=== PATIENT | female | born 1980 | race Caucasian/White ===

== ENCOUNTER 2018-08-26 08:50 | Emergency (ER) | payer SELFPAY ==
[2018-08-26] MEDS ORDERED: CLEOCIN 600 MG/50 mL 600 MG/50 ML BAG IV ONE (09:57)
[2018-08-26] MEDS ORDERED: NACL 0.9% 1000 ML 1,000 ML IV ONE (09:57)
[2018-08-26] MEDS ORDERED: TORADOL IV ONE (09:58)
[2018-08-26 13:08] LABS: Bilirubin,Urine NEG (Negative); Blood,Urine SM (Negative); Color,Urine Straw (Yellow); Mucus,Urine FEW /HPF; Urobilinogen,Urine < 2.0 mg/dL (<2.0)
[2018-08-26 13:09] LABS: Protein,Urine >500 mg/dL (Negative)
[2018-08-26 13:29] LABS: HCG Qualitative,Urine Negative (Negative)
[2018-08-26] MEDS ORDERED: DIFLUCAN PO ONE (13:42)
--- NOTE | 2018-08-26 13:42 | Emergency Department Report ---
ED Extremity Problem HPI - General Chief complaint: Extremity Problem,Nontraumatic Stated complaint: (L) TOE SWOLLEN/PAIN Time Seen by Provider: 08/26/18 09:54 Source: patient Mode of arrival: Ambulatory Limitations: No Limitations - History of Present Illness Initial comments: Patient is a 38-year-old female with past history of diabetes prese nting with right great toe pain. Patient states that she was clipping her nails several days ago and thinks she may have clipped too far down. Patient has some swelling around the nail with redness. Patient states as a throbbing aching sensation to 6 out of 10 in severity. Patient denies any fevers chills nausea vomiting or diarrhea. She has had some increased urination and some mild weakness. Patient also states that she has some mild vaginal itching and dysuria. Patient's denies suprapubic pain or back pain at this time. Severity scale (0 -10): 6 - Related Data Home Medications Medication Instructions Recorded Confirmed Last Taken Ferrous Sulfate [Iron Supplement 10 gram PO BID 08/30/14 11/09/15 10/06/15 325 Mg tab] Insulin Glargine [Lantus VIAL] 17 units SQ QHS 08/30/14 11/09/15 10/06/15 Lisinopril [Zestril TAB] 5 mg PO QDAY 08/30/14 11/09/15 10/06/15 Insulin Lispro [HumaLOG VIAL] 5.8 units SQ AC 10/04/15 11/09/15 10/06/15 Previous Rx's Medication Instructions Recorded Last Taken Type Pantoprazole [Protonix TAB] 40 mg PO QDAY #30 tablet 11/12/15 Unknown Rx levoFLOXacin [Levaquin] 750 mg PO QDAY #12 tablet 11/12/15 Unknown Rx Clindamycin [Clindamycin CAP] 300 mg PO Q8H #21 cap 08/26/18 Unknown Rx Ketorolac [Toradol] 10 mg PO Q6H PRN #12 tablet 08/26/18 Unknown Rx traMADol [Ultram] 50 mg PO Q6HR PRN #12 tablet 08/26/18 Unknown Rx Allergies Allergy/AdvReac Type Severity Reaction Status Date / Time No Known Allergies Allergy Unverified 08/30/14 18:05 ED Review of Systems ROS: Stated complaint: (L) TOE SWOLLEN/PAIN Other details as noted in HPI Comment: All other systems reviewed and negative ED Past Medical Hx - Past Medical History Previous Medical History?: Yes Hx Hypertension: Yes Hx Congestive Heart Failure: No Hx Diabetes: Yes Hx GERD: Yes (Ulcer) Hx Renal Disease: No Hx Seizures: No Hx Asthma: No Hx COPD: No Additional medical history: Fibroids, high cholesterol - Surgical History Past Surgical History?: Yes Hx Appendectomy: Yes Additional Surgical History: tubal ligation, x 4. laser eye surgery 10/04/15 - Social History Smoking Status: Never Smoker Substance Use Type: None - Medications Home Medications: Home Medications Medication Instructions Recorded Confirmed Last Taken Type Ferrous Sulfate [Iron Supplement 10 gram PO BID 08/30/14 11/09/15 10/06/15 History 325 Mg tab] Insulin Glargine [Lantus VIAL] 17 units SQ QHS 08/30/14 11/09/15 10/06/15 History Lisinopril [Zestril TAB] 5 mg PO QDAY 08/30/14 11/09/15 10/06/15 History Insulin Lispro [HumaLOG VIAL] 5.8 units SQ AC 10/04/15 11/09/15 10/06/15 History Pantoprazole [Protonix TAB] 40 mg PO QDAY #30 tablet 11/12/15 Unknown Rx levoFLOXacin [Levaquin] 750 mg PO QDAY #12 tablet 11/12/15 Unknown Rx Clindamycin [Clindamycin CAP] 300 mg PO Q8H #21 cap 08/26/18 Unknown Rx Ketorolac [Toradol] 10 mg PO Q6H PRN #12 tablet 08/26/18 Unknown Rx traMADol [Ultram] 50 mg PO Q6HR PRN #12 tablet 08/26/18 Unknown Rx ED Physical Exam - General Limitations: No Limitations General appearance: alert, in no apparent distress - Head Head exam: Present: atraumatic, normocephalic - Eye Eye exam: Present: normal appearance - ENT ENT exam: Present: mucous membranes moist - Neck Neck exam: Present: normal inspection - Respiratory Respiratory exam: Present: normal lung sounds bilaterally. Absent: respiratory distress, wheezes, rales, rhonchi - Cardiovascular Cardiovascular Exam: Present: regular rate, normal rhythm. Absent: systolic murmur, diastolic murmur, rubs, gallop - GI/Abdominal GI/Abdominal exam: Present: soft, normal bowel sounds. Absent: distended, tenderness, guarding, rebound - Extremities Exam Extremities exam: Present: normal inspection, tenderness (pelvic right great toe. Patient has some mild erythema surrounding the nail.. There is no areas of fluctuance consistent with a paronychia.) - Back Exam Back exam: Present: normal inspection - Neurological Exam Neurological exam: Present: alert, oriented X3 - Psychiatric Psychiatric exam: Present: normal affect, normal mood - Skin Skin exam: Present: warm, dry, intact, normal color. Absent: rash ED Course Vital Signs 08/26/18 09:07 Temperature 97.8 F Pulse Rate 94 H Respiratory 16 Rate Blood Pressure 183/94 [Left] O2 Sat by Pulse 100 Oximetry ED Medical Decision Making - Lab Data Lab Results 08/26/18 08/26/18 Range/Units 09:07 11:31 POC Glucose 267 H (70-105) Urine Color Straw (Yellow) Urine Turbidity Clear (Clear) Urine pH 6.0 (5.0-7.0) Ur Specific [place] 1.010 (1.003-1.030) Urine Protein >500 (Negative) mg/dL Urine Glucose (UA) 150 (Negative) mg/dL Urine Ketones Neg (Negative) mg/dL Urine Blood Sm (Negative) Urine Nitrite Neg (Negative) Urine Bilirubin Neg (Negative) Urine Urobilinogen < 2.0 (<2.0) mg/dL Ur Leukocyte Esterase Neg (Negative) Urine WBC (Auto) 2.0 (0.0-6.0) /HPF Urine RBC (Auto) 4.0 (0.0-6.0) /HPF U Epithel Cells (Auto) < 1.0 (0-13.0) /HPF Urine Mucus Few /HPF Urine HCG, Qual Negative (Negative) - Medical Decision Making Patient given a liter of normal saline for hyperglycemia. Patient also started on IV clindamycin. Patient will continue clindamycin and some outpatient. Patient given Diflucan for presumed yeast infection. Patient's urinalysis was relatively within normal limits. Critical care attestation.: If time is entered above; I have spent that time in minutes in the direct care of this critically ill patient, excluding procedure time. ED Disposition Clinical Impression: Cellulitis of foot, Dysuria, Yeast infection Disposition: DC-01 TO HOME OR SELFCARE Is pt being admited?: No Does the pt Need Aspirin: No Condition: Stable Instructions: Cellulitis (ED), Diabetic Foot Care (ED) Referrals: ELAINE MCDANIELBROOKLINE MD GUILLERMINA [Primary Care Provider] - 3-5 Days LENNY PRESSLEY DPM [Staff Physician] - 3-5 Days Time of Disposition: 13:41
[2018-08-26 14:29] VITALS: BP 140/84
== END 2018-08-26 14:27 | disposition home or self-care (01) ==
LOC: ED 08:50
DX: L03.115 Cellulitis of right lower limb (principal); B37.3 Candidiasis of vulva and vagina
CPT/HCPCS: 81001; 81025; 82962; 96365; 96375; 99283; J1885; J7030